=== PATIENT | male | born 1955 ===

== ENCOUNTER 2017-11-30 06:48 | Day surgery (SDC) | payer OTHER ==
[~2017-11-30] VITALS: Ht 177.8 cm; Wt 103.7 kg
[~2017-11-30 06:48] MED LIST: ALBU90OI6; ATOR10; BETA.05TCA; GUAI600T33; Gentak3.5 GM; LISI20; Transderm-Scop1 EACH
== END 2017-11-30 08:53 | disposition home or self-care (01) ==
LOC: ORSCSDS 06:48
DX: Z12.11 Encounter for screening for malignant neoplasm of colon (principal); K63.5 Polyp of colon; K64.8 Other hemorrhoids; K57.30 Diverticulosis of large intestine without perforation or abscess without bleeding; I10 Essential (primary) hypertension; G47.33 Obstructive sleep apnea (adult) (pediatric); Z79.899 Other long term (current) drug therapy; E66.9 Obesity, unspecified; Z68.32 Body mass index [BMI] 32.0-32.9, adult
CPT/HCPCS: 88305; J0330; J1980; J2405; J7120